=== PATIENT | male | born 1980 | race Caucasian/White ===

== ENCOUNTER 2021-02-28 22:35 | Emergency (ER) | payer BC, OTHER, SELFPAY ==
[2021-02-28] MEDS ORDERED: Fluorescein Opthalmic Strip ONE (22:57)
[2021-02-28] MEDS ORDERED: Proparacaine 0.5% Opth 15 ML BOT ONE (22:57)
[2021-02-28] MEDS ORDERED: Gentamicin Ophth Soln 0.3% 5 ml Bottle ONE (23:05)
[2021-02-28] MEDS ORDERED: Boostrix 0.5 ML (Tdap) VIAL ONE (23:06)
[2021-02-28] MEDS ORDERED: Erythromycin Base 0.5% Oint 1 GM TUBE ONE (23:13)
== END 2021-02-28 23:43 | disposition home or self-care (01) ==
LOC: NAV ERS 22:35
DX: S05.02XA Injury of conjunctiva and corneal abrasion without foreign body, left eye, initial encounter (principal); F17.210 Nicotine dependence, cigarettes, uncomplicated; W22.8XXA Striking against or struck by other objects, initial encounter
CPT/HCPCS: 90471; 90715